=== PATIENT | male | born 1940 | race Caucasian/White ===

== ENCOUNTER 2018-05-05 06:21 | Observation (INO) | payer MEDICARE ==
[2018-05-02 12:55] LABS: BASOPHILS # (AUTO) 0.1 (0.0-0.1); BASOPHILS % 0.6 % (0.0-1.0); EOSINOPHILS # (AUTO) 0.2 (0.0-0.4); EOSINOPHILS % 3.1 % (0.0-6.0); HEMATOCRIT 37.2 % (38.2-49.6); HEMOGLOBIN 12.9 g/dL (14.0-18.0); LYMPHOCYTES # (AUTO) 2.1 (1.0-3.2); LYMPHOCYTES % 27.5 % (18.0-39.1); MEAN CORPUSCULAR HEMOGLOBIN 35.5 pg (28-32); MEAN CORPUSCULAR HGB CONC 34.7 g/dL (31-35); MEAN CORPUSCULAR VOLUME 102.5 fL (81-99); MONOCYTES # (AUTO) 0.7 (0.2-0.8); MONOCYTES % 8.7 % (4.4-11.3); NEUTROPHILS # (AUTO) 4.6 (2.1-6.9); NEUTROPHILS % 59.6 % (38.7-80.0); PLATELET COUNT 232 x10e3/uL (140-360); RED BLOOD COUNT 3.63 x10e6/uL (4.3-5.7); RED CELL DISTRIBUTION WIDTH 12.9 % (11.7-14.4)
--- NOTE | 2018-05-02 13:08 | Diagnostic Imaging Report ---
EXAMINATION: CHEST 2 VIEWS INDICATION: \S\PRE OP \[id number] \S\1220 \S\ANESTH PROT COMPARISON: None FINDINGS: PA and lateral views TUBES and LINES: None. LUNGS: Lungs are well inflated. A 1.3 cm nodular opacity projects over the left lower lung field. There is no evidence of pneumonia or pulmonary edema. PLEURA: No pleural effusion or pneumothorax. HEART AND MEDIASTINUM: Mild aortic arch calcifications. The cardiomediastinal silhouette is unremarkable. BONES AND SOFT TISSUES: No acute osseous lesion. Degenerative changes of the spine. Soft tissues are unremarkable. UPPER ABDOMEN: No free air under the diaphragm. IMPRESSION: No acute thoracic abnormality. Nodular opacity projecting over the left lower lung field may represent a nipple shadow. Recommend repeat chest radiograph with nipple markers in place. Signed by: DR. Juventino Clay MD on 05/02/2018 1:04 PM
[~2018-05-05] VITALS: Ht 172.7 cm; Wt 79.6 kg
[~2018-05-05 06:21] MED LIST: AMLODIPINE BESY10 MG PO; POTASSIUM GLUCONATE PO; ROPIVACAINE 246.25 MG, EPINEPHRINE HCL 1:1000 0.5 MG, CLONIDINE HCL 0.08 MG, KETOROLAC ... INJ ONE
[2018-05-05] MEDS ORDERED: DEXAMETHASONE SOD PHOS 10 MG/1 ML VIAL ONE (06:38)
[2018-05-05] MEDS ORDERED: CELECOXIB 200 MG CAP ONE (06:38)
[2018-05-05] MEDS ORDERED: GABAPENTIN 300 MG CAP ONE (06:39)
[2018-05-05] MEDS ORDERED: CEFAZOLIN SOD 2 GM/D5W 50ML 50 ML IV ONE (06:39)
[2018-05-05] MEDS ORDERED: BACITRACIN 50,000 UNIT VIAL ONE (06:40)
[2018-05-05] MEDS ORDERED: TRANEXAMIC ACID 1,000 MG/10 ML ML ONE (06:40)
[2018-05-05] MEDS ORDERED: MUPIROCIN 2% OINT 22 GM TUBE ONE (06:40)
[2018-05-05] MEDS: SODIUM CHLORIDE 0.9% 1000ML 1,000 ML IV SCH ×2 (09:12→19:12)
[2018-05-05] MEDS ORDERED: DIPHENHYDRAMINE HCL INJ 50 MG/ML VIAL IM/IV PRN (09:15)
[2018-05-05] MEDS ORDERED: DOCUSATE SODIUM 100 MG CAP PO PRN (09:15)
[2018-05-05] MEDS ORDERED: ACETAMINOPHEN 650 MG SUPP PR PRN (09:15)
[2018-05-05] MEDS ORDERED: KETOROLAC TROMETHAMINE 30 MG/ML VIAL IV PRN (09:15)
[2018-05-05] MEDS ORDERED: PROMETHAZINE HCL (IM) 25 MG/ML VIAL IM PRN (09:15)
[2018-05-05] MEDS ORDERED: HYDROCODONE/APAP 5MG-325MG TAB PO PRN (09:15)
[2018-05-05] MEDS ORDERED: ONDANSETRON HCL INJ 2 MG/ML VIAL IV PRN (09:15)
[2018-05-05 10:35] VITALS: BP 142/68
[2018-05-05 10:50] VITALS: BP 142/68
[2018-05-05 10:54] VITALS: BP 142/68
[2018-05-05 11:34] VITALS: BP 131/65
--- NOTE | 2018-05-05 11:46 | Diagnostic Imaging Report ---
PROCEDURE: X-RAY LEFT KNEE, ONE OR TWO VIEWS COMPARISON: None. INDICATIONS:POST OP OF LEFT KNEE FINDINGS: See conclusion. CONCLUSION: Status post total left knee replacement with surrounding soft tissue swelling, air and boaz consistent with recent surgery. No acute fractures. Jesus Lynne D.O. Dictated by: Jesus Lynne D.O. on 05/05/2018 at 11:16 Electronically approved by: Jesus Lynne D.O. on 05/05/2018 at 11:16
--- NOTE | 2018-05-05 12:01 | Operative Report ---
DATE OF PROCEDURE: May 05, 2018 PREOPERATIVE DIAGNOSIS: Osteoarthritis, left knee. POSTOPERATIVE DIAGNOSIS: Osteoarthritis, left knee. PROCEDURE: Left total knee arthroplasty. RESTAURANT ATTENDANT: Jim Ibarra PA-C The patient was brought to the operating room for induction of anesthesia. Throughout this case, my PA's assistance was necessary for retraction of soft tissue and positioning of the extremity. This allows for efficient and technically successful execution of the operation and is considered medically necessary. INDICATIONS: The patient is a 77-year-old gentleman with end-stage arthritis of his left knee. He has failed conservative management and would like to proceed with a left total knee replacement. The risks and benefits have been explained. The patient states he understands and wishes to proceed. DESCRIPTION OF PROCEDURE: The patient was brought to the operating room and placed under general anesthetic. He received prophylactic antibiotics, a regional block, and tranexamic acid in the holding area. His left lower extremity was prepped and draped in a sterile manner. A preoperative time out was performed. The extremity was exsanguinated and the proximal tourniquet was inflated to 350 mmHg. An anterior approach with a medial parapatellar arthrotomy was performed. Soft tissue releases were performed to bring the knee up into flexion with the patella everted. Severe articular wear was noted in the medial compartment. The subchondral bone was worn with . Meniscal remnants and marginal osteophytes were removed. The cruciate ligaments were sacrificed. A [employer] Anastacia II posterior stabilized knee system was used throughout the case. An extramedullary cutting guide was used to resect the proximal tibia. A +2 mm cut was necessary for the medial compartment wear. The tibial baseplate was a size #6. The central fin punch was impacted and attention was directed towards the distal femur. An intramedullary cutting guide was used to resect the distal femur in 6 degrees of valgus and rotation referencing off of a combination of landmarks including Rio's line, the epicondylar axis, and the posterior condyles. The femoral component was also a size #6. The anterior and posterior cuts were made. Trial reductions were performed. An 11-mm ultracongruent tibial insert provided appropriate soft tissue balancing in flexion and extension. The patella was resurfaced with a 35 mm x 9 mm patellar button. The thickness was checked before and after and was right around 24 mm. Patellar tracking was concentric. The trial implants were then all removed. A 100 mL premixed pericapsular EDNA injection was placed into the surrounding soft tissue. The knee was thoroughly irrigated with a shower-tip pulsatile lavage. The components were cemented into place using a single mix of Palac[place] cement preloaded with antibiotics. Care was taken to remove extravasated cement. The wound was further irrigated while the cement cured. The arthrotomy was then closed with interrupted #1 Ethibond. The knee was put through flexion and extension to ensure a secure closure. The skin was closed with subcuticular Vicryl and boaz. The skin was very thin. A sterile Aquacel bandage was applied. The patient was extubated and transported to the recovery room in stable condition. The blood loss was minimal. All needle and sponge counts were correct. Job#: [id number]
[2018-05-05] MEDS: ACETAMINOPHEN 1000 MG/100 ML IV SCH ×3 (12:05→23:56)
[2018-05-05] MEDS ORDERED: CEFAZOLIN SOD 1 GM/D5W 50ML 50 ML IV SCH (14:00)
[2018-05-05] MEDS: CEFAZOLIN SOD 1 GM VIAL IV SCH ×2 (15:58→23:56)
[2018-05-05 16:12] VITALS: BP 140/73
[2018-05-05] MEDS ORDERED: CELECOXIB 100 MG CAP PO SCH (17:00)
[2018-05-05] MEDS ORDERED: SEVOFLURANE INHAL SOLN 250 ML PEN BTL ONE (17:30)
[2018-05-05] MEDS ORDERED: PROPOFOL IV EMULSION 10 MG/ML 20 ML VIAL ONE (17:30)
[2018-05-05] MEDS ORDERED: DEXAMETHASONE SOD PHOS INJ 4 MG/ML VIAL ONE (17:30)
[2018-05-05] MEDS ORDERED: LIDOCAINE HCL 2% LOCAL INJ 5 ML SDV VIAL INJ ONE (17:30)
[2018-05-05] MEDS ORDERED: ONDANSETRON HCL INJ 2 MG/ML VIAL ONE (17:30)
[2018-05-05] MEDS ORDERED: LIDOCAINE 2%/ EPINEPHRINE 20ML MDV ONE (17:40)
[2018-05-05] MEDS ORDERED: ROPIVACAINE 0.5% 5 MG/ML 30 ML SDV ONE (17:40)
[2018-05-05] MEDS ORDERED: MIDAZOLAM HCL 2 MG/2 ML VIAL ONE (17:42)
[2018-05-05] MEDS ORDERED: FENTANYL CITRATE/PF 100MCG/2 ML INJ ONE (17:42)
[2018-05-05] MEDS: CELECOXIB 200 MG CAP PO SCH (17:53)
[2018-05-05] MEDS: ASPIRIN 325 MG TAB PO SCH (17:53)
[2018-05-05 20:00] VITALS: BP 126/65
[2018-05-05] MEDS ORDERED: ALBUTEROL/IPRATROPIUM 3 ML NEB NEB PRN (20:00)
[2018-05-05] MEDS ORDERED: ZOLPIDEM TARTRATE 5 MG TAB PO PRN (21:00)
[2018-05-06] VITALS: BP 134/67
[2018-05-06 04:00] VITALS: BP 138/67
[2018-05-06] MEDS: SODIUM CHLORIDE 0.9% 1000ML 1,000 ML IV SCH (05:12)
[2018-05-06 05:40] LABS: BASOPHILS % 0.1 % (0.0-1.0); HEMATOCRIT 31.6 % (38.2-49.6); HEMOGLOBIN 10.9 g/dL (14.0-18.0); LYMPHOCYTES # (AUTO) 1.3 (1.0-3.2); LYMPHOCYTES % 11.5 % (18.0-39.1); MEAN CORPUSCULAR HEMOGLOBIN 34.8 pg (28-32); MEAN CORPUSCULAR HGB CONC 34.5 g/dL (31-35); MONOCYTES % 8.6 % (4.4-11.3); NEUTROPHILS # (AUTO) 9.1 (2.1-6.9); NEUTROPHILS % 79.4 % (38.7-80.0); PLATELET COUNT 192 x10e3/uL (140-360); RED BLOOD COUNT 3.13 x10e6/uL (4.3-5.7); RED CELL DISTRIBUTION WIDTH 12.4 % (11.7-14.4)
[2018-05-06] MEDS: ACETAMINOPHEN 1000 MG/100 ML IV SCH (06:00)
[2018-05-06 07:43] VITALS: BP 137/67
[2018-05-06] MEDS: ASPIRIN 325 MG TAB PO SCH (08:19)
[2018-05-06] MEDS: CEFAZOLIN SOD 1 GM VIAL IV SCH (08:19)
[2018-05-06] MEDS: CELECOXIB 200 MG CAP PO SCH (08:19)
[2018-05-06] MEDS ORDERED: AMLODIPINE BESYLATE 10 MG TAB PO SCH (09:00)
[2018-05-06] MEDS ORDERED: ACETAMINOPHEN 1000 MG/100 ML IV PRN (09:15)
[2018-05-06] MEDS: HYDROCODONE/APAP 7.5MG-325MG 1 EA TAB PO PRN ×2 (09:19→13:32)
[2018-05-06 10:15] VITALS: BP 137/67
[2018-05-06 12:33] VITALS: BP 150/71
[2018-05-06] MEDS ORDERED: ASPIRIN325 MG PO (13:17)
[2018-05-06] MEDS ORDERED: NORCO 7.5-3251 EACH PO (14:13)
== END 2018-05-06 14:45 | disposition home health service (06) ==
LOC: OR 06:21 → PACU V 10:40 → MED/SURG 10:48
PROVIDERS: ADMIT Specialist; ATTEND Specialist
DX: M17.12 Unilateral primary osteoarthritis, left knee (principal); I10 Essential (primary) hypertension; J44.9 Chronic obstructive pulmonary disease, unspecified
CPT/HCPCS: 27447; 36415 ×2; 71046; 73560; 85025 ×2; 86850; 86900; 86920; 93005; 97116; 97161; 97530; G0378 ×2; G8978; G8979; J0171; J0690 ×2; J1100 ×2; J1885; J2001 ×2; J2250; J2405; J2795; J7030; C1713